=== PATIENT | male | born 1990 | race Caucasian/White ===

== ENCOUNTER 2017-12-08 10:58 | Emergency (ER) | payer SELFPAY ==
[~2017-12-08] VITALS: Ht 177.8 cm; Wt 72.6 kg
[2017-12-08 11:33] VITALS: BP 152/112
[2017-12-08 11:49] LABS: Basophils # (auto) 0.1 uL; Basophils % (auto) 0.8 % (0.0-2.0); Eosinophils # (auto) 0.1 uL; Eosinophils % (auto) 0.9 % (0.0-7.0); Hematocrit 48.2 % (41.0-53.0); Hemoglobin 16.1 g/dL (13.5-17.5); Lymphocytes # (auto) 1.4 uL; Lymphocytes % (auto) 12.1 % (10.0-50.0); Mean Corpuscular Hemoglobin 31.6 pg (28.0-32.0); Mean Corpuscular Hgb Conc. 33.3 g/dL (32.0-36.0); Mean Corpuscular Volume 94.8 fL (80.0-100.0); Monocytes # (auto) 0.6 uL; Monocytes % (auto) 5.4 % (0.0-12.0); Neutrophils # (auto) 9.2 uL; Neutrophils % (auto) 80.8 % (37.0-80.0); Nucleated Red Blood Cells % 0.1 %; Platelet Count (auto) 438 10^3/uL (140-450); Red Blood Cells 5.08 10^6/uL (4.5-5.90); White Blood Cell 11.3 10^3/uL (4.4-10.8)
[2017-12-08 12:05] LABS: Potassium 3.2 mmol/L (3.5-5.1)
[2017-12-08 12:06] LABS: Albumin 4.3 g/dL (3.4-5.0); BUN/Creatinine Ratio 9.3; Bilirubin, Total 0.4 mg/dL (0.2-1.0); Calcium 8.8 mg/dL (8.5-10.1); Total Protein 7.6 g/dL (6.4-8.2)
[2017-12-08 12:21] LABS: Urine Bacteria NONE SEEN /hpf (None Seen); Urine Blood 1+ /uL (Negative); Urine Mucus FEW (None Seen); Urine Specific Gravity 1.022 (1.001-1.035); Urine WBC 6 /hpf (0 - 3)
[2017-12-08] MEDS ORDERED: cefTRIAXone W LIDOCAINE 1 GM IM IM ONE (12:30)
[2017-12-08] MEDS ORDERED: LIDOCAINE 1% (LOCAL ANESTH.) PF 5ml SDV ONE (12:45)
[2017-12-08] MEDS ORDERED: HYDROcodone-ACET 10/325MG TAB PO ONE (12:45)
[2017-12-08] MEDS ORDERED: cefTRIAXone SOD 1,000 MG VL ONE (12:45)
== END 2017-12-08 13:47 | disposition home or self-care (01) ==
LOC: ER 10:58
DX: S76.219A Strain of adductor muscle, fascia and tendon of unspecified thigh, initial encounter (principal); F17.210 Nicotine dependence, cigarettes, uncomplicated; F12.10 Cannabis abuse, uncomplicated; X58.XXXA Exposure to other specified factors, initial encounter; Y93.89 Activity, other specified; Y92.89 Other specified places as the place of occurrence of the external cause; Y99.8 Other external cause status
CPT/HCPCS: 36415; 76870; 80053; 81001; 85025; 96372; 99285; J0696

== ENCOUNTER 2018-04-08 15:02 | Observation (INO) | payer SELFPAY ==
[~2018-04-08] VITALS: Ht 177.8 cm; Wt 74.8 kg
[2018-04-08 17:07] LABS: Albumin 4.6 g/dL (3.4-5.0); BUN/Creatinine Ratio 9.2; Bilirubin, Total 3.7 mg/dL (0.2-1.0); Calcium 9.2 mg/dL (8.5-10.1); Total Protein 7.5 g/dL (6.4-8.2)
[2018-04-08 17:08] LABS: Potassium 2.6 mmol/L (3.5-5.1)
[2018-04-08 17:20] LABS: Basophils # (auto) 0.1 uL; Eosinophils # (auto) 0 uL; Hemoglobin 16.6 g/dL (13.5-17.5); Monocytes # (auto) 1.1 uL; Red Cell Distribution Width 12.5 % (11.8-14.3)
[2018-04-08 17:21] LABS: Basophils % (auto) 0.5 % (0.0-2.0); Lymphocytes # (auto) 1.7 uL; Lymphocytes % (auto) 16.2 % (10.0-50.0); Mean Corpuscular Hemoglobin 32.6 pg (28.0-32.0); Mean Corpuscular Hgb Conc. 36.1 g/dL (32.0-36.0); Mean Corpuscular Volume 90.3 fL (80.0-100.0); Monocytes % (auto) 10.4 % (0.0-12.0); Neutrophils # (auto) 7.6 uL; Neutrophils % (auto) 72.9 % (37.0-80.0); Nucleated Red Blood Cells % 0.2 %; Platelet Count (auto) 479 10^3/uL (140-450); Red Blood Cells 5.09 10^6/uL (4.5-5.90); White Blood Cell 10.4 10^3/uL (4.4-10.8)
[2018-04-08] MEDS ORDERED: SODIUM CHLORIDE 0.9% 1,000 ML IVB ONE (18:18)
[2018-04-08] MEDS ORDERED: ONDANSETRON HCL 4 MG/2 ML VIAL IV ONE ×2 (18:30→22:45)
[2018-04-08] MEDS ORDERED: KETOROLAC TROMETH 30 MG/ML 1ML VIAL IV ONE (18:30)
[2018-04-08] MEDS: POTASSIUM CHL 20MEQ/100ML 100 ML IV SCH ×2 (18:40→21:50)
[2018-04-08 18:49] LABS: Magnesium 2.1 mg/dL (1.6-2.6)
[2018-04-08] MEDS ORDERED: POTASSIUM EFFERVESENT TAB 25 MEQ GT ONE (20:30)
[2018-04-08] MEDS ORDERED: ONDANSETRON HCL 4 MG/2 ML VIAL ONE (22:36)
[2018-04-08 22:40] VITALS: BP 157/83
== END 2018-04-08 23:18 | disposition home or self-care (01) | DRG 392 ==
LOC: ER 15:02 → OVERFLOW 15:03 → ER 23:18
PROVIDERS: ADMIT Family Medicine; ATTEND Family Medicine
DX: K52.9 Noninfective gastroenteritis and colitis, unspecified (principal); E87.6 Hypokalemia; N20.0 Calculus of kidney; F12.10 Cannabis abuse, uncomplicated; F17.210 Nicotine dependence, cigarettes, uncomplicated
CPT/HCPCS: 36415; 71045; 74176; 80053; 82150; 83690; 83735; 85025; 96365; 96366; 96372; 96375; 96376; 99285; G0378; J1885; J2405; J3480; J7030

== ENCOUNTER 2018-04-24 07:01 | Emergency (ER) | payer SELFPAY ==
[~2018-04-24] VITALS: Ht 177.8 cm; Wt 65.8 kg
[2018-04-24] MEDS ORDERED: SODIUM CHLORIDE 0.9% 1,000 ML IVB ONE (07:42)
[2018-04-24] MEDS ORDERED: PANTOPRAZOLE 40 MG/10 ML VIAL IV STA (07:42)
[2018-04-24] MEDS ORDERED: PROCHLORPERAZINE EDISYLATE 5 MG/ML 2ML VIAL IV ONE (07:45)
[2018-04-24] MEDS ORDERED: MORPHINE SULFATE 4 MG/ML SYR/VIAL IV ONE (07:45)
[2018-04-24 08:19] LABS: Basophils # (auto) 0 uL; Eosinophils # (auto) 0 uL; Hemoglobin 17.8 g/dL (13.5-17.5); Lymphocytes # (auto) 0.9 uL; Mean Corpuscular Volume 90.8 fL (80.0-100.0); Monocytes # (auto) 0.7 uL; White Blood Cell 8.6 10^3/uL (4.4-10.8)
[2018-04-24 08:22] LABS: Basophils % (auto) 0.2 % (0.0-2.0); Eosinophils % (auto) 0.1 % (0.0-7.0); Hematocrit 48.7 % (41.0-53.0); Lymphocytes % (auto) 10.6 % (10.0-50.0); Mean Corpuscular Hemoglobin 33.2 pg (28.0-32.0); Mean Corpuscular Hgb Conc. 36.5 g/dL (32.0-36.0); Monocytes % (auto) 8.6 % (0.0-12.0); Neutrophils % (auto) 80.5 % (37.0-80.0); Nucleated Red Blood Cells % 0.1 %; Platelet Count (auto) 446 10^3/uL (140-450); Red Blood Cells 5.37 10^6/uL (4.5-5.90); Red Cell Distribution Width 12.9 % (11.8-14.3)
[2018-04-24 08:37] LABS: Albumin 4.6 g/dL (3.4-5.0); BUN/Creatinine Ratio 7.3; Bilirubin, Total 2.7 mg/dL (0.2-1.0); Calcium 10.2 mg/dL (8.5-10.1); Potassium 3.4 mmol/L (3.5-5.1); Total Protein 7.8 g/dL (6.4-8.2)
[2018-04-24 10:14] VITALS: BP 120/79
== END 2018-04-24 10:45 | disposition home or self-care (01) ==
LOC: ER 07:01
DX: F12.188 Cannabis abuse with other cannabis-induced disorder (principal); R11.10 Vomiting, unspecified; F17.210 Nicotine dependence, cigarettes, uncomplicated
CPT/HCPCS: 36415; 80053; 83690; 85025; 94761; 96361; 96374; 96375; 99284; C9113; J0780; J2270